=== PATIENT | female | born 1965 | race Hispanic/Latino ===

== ENCOUNTER → 2022-12-12 | Day surgery (SDC) | payer BC, OTHER ==
[~2022-12-12] MED LIST: LACTATED RINGER'S 1,000 ML ONE; LIDOCAINE HCL 2% LOCAL INJ 5 ML SDV VIAL INJ ONE; METFORMIN HCL500 MG PO; METOCLOPRAMIDE HCL 10 MG/2ML VIAL ONE; MIDAZOLAM HCL 2 MG/2 ML VIAL ONE; PRAVASTATIN SOD10 MG PO; PROPOFOL IV EMULSION 10 MG/ML 20 ML VIAL ONE
[2022-12-12 08:14] VITALS: TEMP 97.8
[2022-12-12 08:32] VITALS: BP 129/59; PULSE 63; RESP 18; O2SAT 99
== END | disposition home or self-care (01) ==
LOC: OR 06:31
PROVIDERS: ATTEND Internal Medicine Gastroenterology
DX: Z12.11 Encounter for screening for malignant neoplasm of colon (principal); K63.5 Polyp of colon; K64.8 Other hemorrhoids; E11.9 Type 2 diabetes mellitus without complications; E78.5 Hyperlipidemia, unspecified; E88.81 Metabolic syndrome and other insulin resistance; Z01.810 Encounter for preprocedural cardiovascular examination; Z79.84 Long term (current) use of oral hypoglycemic drugs; Z79.899 Other long term (current) drug therapy
CPT/HCPCS: 36415; 45385; 82948; 93005; J2001; J2250; J2704; J2765; J7121; 45378